=== PATIENT | female | born 1960 | race Caucasian/White ===

== ENCOUNTER → 2024-12-24 | Outpatient (CLI) | payer OTHER, SELFPAY ==
--- NOTE | 2024-12-24 11:45 | XR_ITS ---
Examination: Screening digital mammography, bilateral Computer aided detection 3-D breast Tomosynthesis, bilateral Date and time of exam: December 24, 2024 1050 hours Compared to mammograms dating to February 11, 2020 Indication: Screening Technique: Nonmagnified MLO, CC views of the breasts to been obtained, reconstructed from 3-D Tomosynthesis images. R2 computer aided detection program utilized for evaluation of suspicious masses and/or abnormal calcifications. 3-D Tomosynthesis images obtained. Findings: Scattered areas of fibroglandular density Benign calcifications. No interval suspicious masses Impression: BI-RADS Category 0: Incomplete: Need additional imaging evaluation. Bilateral breast sonography August 28, 2023 requested biopsy of 2:00 mass left breast,, recommend follow-up bilateral breast sonography
--- NOTE | 2024-12-24 12:00 | XR_ITS ---
Examination: Bone densitometry Date and time of exam:10/26/2019 5:11 AM Indications: Menopause age 53 history wrist fracture, personal history osteopenia Technique: Lumbar spine and hip total bone mineralization values of an calculated. Peak reference and age match control results have been displayed. Findings: Lumbar spine total bone mineralization is0.886 gm/cm2. This is 1.5 standard deviations below peak reference. This is 0.3 standard deviations above age-matched controls. Hip total bone mineralization is 0.860 gm/cm2 This is 0.7 standard deviations below peak reference. This is 0.5 standard deviations above age-matched controls Impression: There is osteopenia based on lumbar spine measurements. There is osteopenia based on hip measurements Lumbar mineralization is increased 5.2% compared with October 11, 2020 Hip mineralization is decreased 6.4% compared with October 11, 2020
== END | disposition home or self-care (01) ==
LOC: CDIM 10:38
PROVIDERS: Referring Provider Nurse Practitioner; Visit Provider Nurse Practitioner
DX: Z12.31 Encounter for screening mammogram for malignant neoplasm of breast (principal); R92.8 Other abnormal and inconclusive findings on diagnostic imaging of breast; M85.88 Other specified disorders of bone density and structure, other site
CPT/HCPCS: 77063; 77067; 77080

== ENCOUNTER → 2024-12-31 | Outpatient (CLI) | payer OTHER, SELFPAY ==
[2024-12-31 14:22] LABS: Basophils % (Auto) 1 % (0-2.5); Eosinophils # (Auto) 0.1 Thou/mm3 (0.0-0.5); Eosinophils % (Auto) 1 % (0-10); Hematocrit 40.4 % (36.0-46.0); Hemoglobin 13.6 g/dL (12.0-16.0); Immature Granulocytes % (Auto) 0 % (0-0); Immature Granulocytes Auto 0.01 Thou/mm3 (0.00-0.00); Lymphocytes % (Auto) 30 % (10-50); Mean Corpuscular HGB Conc 33.7 g/dl (31.0-37.0); Mean Corpuscular Hemoglobin 30.4 pg (25.0-35.0); Mean Corpuscular Volume 90 fL (80-100); Monocytes # (Auto) 0.4 Thou/mm3 (0.0-0.8); Monocytes % (Auto) 6 % (0-12); Neutrophils % (Auto) 62 % (37-80); Nucleated Red Blood Cell % 0 /100 WBC (0); Platelet Count 292 Thou/mm3 (140-440); RDW Standard Deviation 43.1 fL (36.4-46.3); Red Blood Count 4.47 Miln/mm3 (4.00-5.20); White Blood Count 6.4 Thou/mm3 (3.6-11.0)
[2024-12-31 15:19] LABS: Cardiac Risk Estimate 4.6 RATIO (3.7-5.6); Cholesterol 251 mg/dL (132-200); HDL Cholesterol 55 mg/dL (40-60); LDL Cholesterol,Calculated 163 mg/dL (0-130); Thyroid Stimulating Hormone 0.72 uIU/mL (0.55-4.78); Triglycerides 165 mg/dL (30-150)
[2024-12-31 15:20] LABS: Ferritin 49 ng/mL (7.3-270.7); Iron 88 mcg/dL (50-170); Total Iron Binding Capacity 289 mcg/dL (250-425)
[2024-12-31 15:41] LABS: Folate > 24.00 ng/mL (>5.38); Vitamin B12 1065 pg/mL (211-911)
[2025-01-05 06:43] LABS: T3,Total* 108 ng/dL (76-181)
== END | disposition home or self-care (01) ==
PROVIDERS: PCP Nurse Practitioner; Referring Provider Nurse Practitioner; Visit Provider Nurse Practitioner
DX: E78.5 Hyperlipidemia, unspecified (principal); R53.83 Other fatigue
CPT/HCPCS: 36415; 80061; 82607; 82728; 82746; 83540; 83550; 84439; 84443; 84480; 85025